=== PATIENT | female | born 1945 | race Caucasian/White ===

== ENCOUNTER 2020-02-23 13:49 | Inpatient (IN) | payer MEDICARE, OTHER ==
[~2020-02-23] VITALS: Ht 167.6 cm; Wt 77.1 kg
[~2020-02-23 13:49] MED LIST: ACET650T11 PO; ASPI81TA31 PO; BENA10TA PO; BISA10SU12 RC; BLOO-125 IN; COLACE PO; EZET10TA15 PO; FERR325T24 PO; HYDR-500 PO; IBAN3DIS IV; LANTUS INSULIN SQ; METF500T PO; NA P133E RC; NOVOLOG INSULIN SQ; ONDA4VIA52 IM; PROSTAT SF PO; SPIR25TA PO
--- NOTE | 2020-02-23 14:00 | NUR ---
PT PRESENTED TO ER VIA PRIVATE AMBULANCE FROM [facility] CONFUSED, AROUSABLE TO VERBAL STIMULI. FOLLOWS COMMANDS NO S/S CARDIOVASCULAR DISTRESS RESPIRATION EVEN AND UNLABORED SR UP FOR SAFETY. BED LOCKED, LOWEST POSITION MONITORED ACCORDINGLY WILL CONTINUE TO MONITOR PT
--- NOTE | 2020-02-23 14:02 | NUR ---
Dr. Wren at bedside for MSE
[2020-02-23] MEDS ORDERED: IV NORMAL SALINE 1000 ML BAG IV ONE ×2 (14:15→15:15)
[2020-02-23 14:47] LABS: BASOPHILS # (AUTO) 0.1 K/uL (0.0-8.0); BASOPHILS % (AUTO) 1.2 % (0.0-2.0); EOSINOPHILS # (AUTO) 0.4 K/uL (0.0-0.7); EOSINOPHILS % (AUTO) 4.9 % (0.0-7.0); HEMATOCRIT 35.8 % (31.2-41.9); LYMPHOCYTES % (AUTO) 25.3 % (20.5-51.5); MEAN CORPUSCULAR HEMOGLOBIN 30.7 uug (24.7-32.8); MEAN CORPUSCULAR HGB CONC 33 g/dL (32.3-35.6); MEAN CORPUSCULAR VOLUME 91.7 fL (75.5-95.3); MONOCYTES # (AUTO) 0.7 K/uL (2.0-10.0); MONOCYTES % (AUTO) 9.4 % (0.0-11.0); NEUTROPHILS # (AUTO) 4.6 K/uL (1.8-8.9); NEUTROPHILS % (AUTO) 59.2 % (38.5-71.5); PLATELET COUNT (AUTO) 230 K/uL (179-408); WHITE BLOOD COUNT (AUTO) 7.8 K/uL (3.8-11.8)
[2020-02-23 14:53] LABS: CARBON DIOXIDE 29 mmol/L (21-32); CHLORIDE 102 mmol/L (98-107); CREATININE 2.3 mg/dL (0.6-1.3); GLUCOSE 90 mg/dL (74-106); POTASSIUM 5.2 mmol/L (3.5-5.1); UREA NITROGEN, BLOOD 28 mg/dL (7-18)
--- NOTE | 2020-02-23 14:56 | NUR ---
PT OUT OF ER FOR CT
[2020-02-23 14:58] LABS: ALANINE AMINOTRANSFERASE 32 U/L (14-59); ALKALINE PHOSPHATASE 65 U/L (50-136); ASPARTATE AMINOTRANSFERASE 46 U/L (15-37); BILIRUBIN,DIRECT 0.1 mg/dL (0.0-0.2); BILIRUBIN,TOTAL 0.2 mg/dL (0.2-1.0); TOTAL PROTEIN, SERUM 7.6 g/dL (6.4-8.2)
[2020-02-23] MEDS ORDERED: ATOR40TA PO (15:04)
[2020-02-23] MEDS ORDERED: OLAN5TAB3 PO (15:04)
[2020-02-23] MEDS ORDERED: DORZ10DR13 RIGHTEYE (15:04)
[2020-02-23] MEDS ORDERED: GABA600T12 PO (15:04)
[2020-02-23] MEDS ORDERED: METO25TA6 PO (15:04)
[2020-02-23] MEDS ORDERED: LATA2.5D7 EACHEYE (15:04)
[2020-02-23] MEDS ORDERED: LEVO175T7 PO (15:04)
[2020-02-23] MEDS ORDERED: [UNRECOGNIZED DRUG - CODE] PO (15:04)
[2020-02-23] MEDS ORDERED: CYCL2DRO2 RIGHTEYE (15:04)
[2020-02-23] MEDS ORDERED: THIA100T13 PO (15:04)
[2020-02-23] MEDS ORDERED: PANT40TA4 PO (15:04)
[2020-02-23] MEDS ORDERED: MULT1TAB73 PO (15:04)
[2020-02-23] MEDS ORDERED: PSYL174P2 PO (15:04)
[2020-02-23] MEDS ORDERED: AMLO5TAB9 PO (15:04)
[2020-02-23] MEDS ORDERED: primrose oil PO (15:04)
[2020-02-23] MEDS ORDERED: FOLI1TAB16 PO (15:04)
[2020-02-23] MEDS ORDERED: BRIM5DRO RIGHTEYE (15:04)
[2020-02-23] MEDS ORDERED: TURM500C7 PO (15:04)
[2020-02-23] MEDS ORDERED: ACET-2154 PO (15:05)
[2020-02-23] MEDS ORDERED: GENT5DRO4 RIGHTEYE (15:05)
[2020-02-23] MEDS ORDERED: TRAZ-182 PO (15:05)
[2020-02-23] MEDS ORDERED: CEFAZOLIN RIGHTEYE (15:05)
[2020-02-23] MEDS ORDERED: GATI2.5D RIGHTEYE (15:05)
[2020-02-23] MEDS ORDERED: BACI3.5O5 RIGHTEYE (15:05)
[2020-02-23] MEDS ORDERED: [UNRECOGNIZED DRUG - CODE] PO (15:05)
[2020-02-23] MEDS ORDERED: GABA-534 PO (15:05)
[2020-02-23] MEDS ORDERED: IBUP-1955 PO (15:05)
[2020-02-23] MEDS ORDERED: HYDR-4354 PO (15:05)
[2020-02-23] MEDS ORDERED: MAGN400O6 PO (15:05)
[2020-02-23] MEDS ORDERED: CLON0.1T14 PO (15:05)
[2020-02-23] MEDS ORDERED: [UNRECOGNIZED DRUG - CODE] RIGHTEYE (15:05)
[2020-02-23 15:09] LABS: THYROID STIMULATING HORMONE 4.418 mIU/mL (0.358-3.740)
[2020-02-23] MEDS ORDERED: CEFTRIAXONE 1 G in IV DEXTROSE 5% 50 ML IV ONE ×2 (15:15→16:30)
[2020-02-23] MEDS ORDERED: AZITHROMYCIN IV 500 MG in IV DEXTROSE 5% 250 ML IV ONE (15:15)
[2020-02-23] MEDS ORDERED: AZITHROMYCIN 500MG/ D5W 250ML IVPB **ER PYXIS ONLY IV ONE (15:38)
[2020-02-23 15:39] LABS: *BILIRUBIN,URIN NEGATIVE (NEGATIVE); *BLOOD, URINE NEGATIVE (NEGATIVE); *COLOR,URINE YELLOW (YELLOW); *KETONES,URINE NEGATIVE (NEGATIVE); *UROBILINOGEN,URINE 0.2 E.U./dl (NORMAL); NITRITE, URINE POSITIVE (NEGATIVE); UGLUCOSE NEGATIVE (NEGATIVE)
[2020-02-23] MEDS ORDERED: CEFTRIAXONE /D5W 50ML IVPB **ER PYXIS IV ONE (15:41)
[2020-02-23 15:43] LABS: ABG BASE EXCESS -3.2 mmol/L; ABG HCO3 23.2 mmol/L; ABG PCO2 47.3 mmHg (35.0-45.0); ABG PH 7.309 (7.350-7.450); ABG PO2 97.2 mmHg (75.0-100.0); ABG SITE RIGHT RADIAL; ABG TOTAL HEMOGLOBIN 11.9 G/dL (12.0-16.0); COHb 5.2 % (0.5-1.5); MetHb 0.1 % (0.0-1.5); O2Hb 92.3 % (94.0-97.0); VENT MODE Nasal Cannula
[2020-02-23 15:52] LABS: *CLARITY,URINE CLOUDY (CLEAR); LEUKOCYTE ESTERASE ,URINE 2+ (NEGATIVE)
[2020-02-23 15:53] LABS: BACTERIA,URINE MANY /HPF (NONE SEEN); SQUAMOUS EPITHELIAL CELL,UR MODERATE /HPF (NONE SEEN); WBC,URINE 80-100 /HPF (0-3)
[2020-02-23] MEDS ORDERED: IV NS 1000 ML 1,000 ML IV ONE (16:30)
--- NOTE | 2020-02-23 17:08 | NUR ---
report given to Mena WILLIS
[2020-02-23] MEDS ORDERED: CLONIDINE HCL 0.1 MG TABLET PO PRN (18:15)
--- NOTE | 2020-02-23 18:26 | NUR ---
Pt. admitted to Tele Room 220 , under care of David Trejo PAPER FINAL INSPECTOR Belongs List completed All belongings with pt no s/s of distress
[2020-02-23] MEDS ORDERED: SODIUM POLYSTYRENE SULFONATE 15 G/60 ML LIQUID UDC PO ONE (18:30)
[2020-02-23] MEDS ORDERED: ONDANSETRON 4 MG/2 ML VIAL IV PRN (18:45)
[2020-02-23] MEDS ORDERED: MAGNESIUM HYDROXIDE 30 ML LIQUID UDC PO PRN (18:45)
[2020-02-23] MEDS ORDERED: MORPHINE SULFATE 2 MG/1 ML DISP.SYRIN IV PRN (18:45)
[2020-02-23] MEDS ORDERED: ZOLPIDEM 5 MG TABLET PO PRN (18:45)
[2020-02-23] MEDS ORDERED: Z GUARD REMEDY PASTE 57 GM TUBE TOP PRN (18:45)
[2020-02-23] MEDS ORDERED: DEXTROSE 50% 50 ML DISP.SYRIN IV PRN (18:45)
[2020-02-23] MEDS ORDERED: ACETAMINOPHEN 325 MG TABLET PO PRN (18:45)
--- NOTE | 2020-02-23 19:30 | NUR ---
RECEIVED SHIFT REPORT FROM AM NURSE. PATIENT TRANSFERRED FROM ER TO TELE UNIT. RECEIVED PATIENT IN BED, INTERMITTENTLY ASLEEP. PATIENT EASILY AROUSABLE WHEN SPOKEN TO. DENIES PAIN AT THIS TIME. NO FACIAL GRIMACING OBSERVED. ON ROOM AIR, TOLERATED WELL. RESPIRATIONS EVEN AND UNLABORED. PATIENT PULLED OUT PERIPHERAL LINE TO RIGHT WRIST. DRY DRESSING INTACT, NO BLEEDING OBSERVED. FALL AND SAFETY PRECAUTIONS OBSERVED. WILL CONTINUE TO ANTICIPATE AND MEET PATIENT'S NEEDS.
[2020-02-23 19:50] LABS: FERRITIN 59 ng/mL (8-252); LACTATE DEHYDROGENASE 306 U/L (81-234)
[2020-02-23 20:12] LABS: CREATINE KINASE, TOTAL 1101 U/L (26-192)
[2020-02-23 21:20] VITALS: BP 127/67
[2020-02-23] MEDS: ATORVASTATIN 40 MG TABLET PO SCH (21:45)
[2020-02-23] MEDS: GABAPENTIN 300 MG CAPSULE PO SCH (21:46)
[2020-02-23] MEDS: TRAZODONE 50 MG TABLET PO SCH (21:46)
[2020-02-23] MEDS: HEPARIN SODIUM,PORCINE 5,000 UNITS/ML VIAL SQ SCH (21:47)
[2020-02-23] MEDS: BLOOD SUGAR DIAGNOSTIC 1 EACH STRIP VI SCH (22:04)
[2020-02-23] MEDS: DORZOLAMIDE/TIMOLOL OPHT DROP 10 ML BOTTLE RIGHTEYE SCH (22:04)
[2020-02-24] MEDS: PIPERACILLIN SODIUM/TAZOBACTAM 3.375 G in IV DEXTROSE 5% 50 ML IV SCH ×4 (00:08→22:30)
[2020-02-24 00:48] VITALS: BP 155/65
[2020-02-24 04:39] VITALS: BP 135/67
[2020-02-24] MEDS: BLOOD SUGAR DIAGNOSTIC 1 EACH STRIP VI SCH ×4 (06:33→21:34)
--- NOTE | 2020-02-24 07:22 | NUR ---
PATIENT IS IN BED, ASLEEP BUT EASILY AROUSABLE. PERIPHERAL LINE INSERTED TO RIGHT FOREARM, TOLERATED PROCEDURE WELL. PERIPHERAL LINE INTACT AND PATENT, INFUSING ZOSYN PER MD ORDER. AFEBRILE THROUGH THE NIGHT. KEPT PATIENT WARM, CLEAN, AND COMFORTABLE. FALL AND SAFETY PRECAUTIONS OBSERVED. ALL NEEDS ATTENDED.
[2020-02-24] MEDS: MULTIVITAMINS,THERAPEUTIC TABLET PO SCH (08:37)
[2020-02-24] MEDS: OLANZAPINE 5 MG TABLET PO SCH ×2 (08:37→21:19)
[2020-02-24] MEDS: FOLIC ACID 1 MG TABLET PO SCH (08:37)
[2020-02-24] MEDS: THIAMINE HCL 100 MG TABLET PO SCH (08:37)
[2020-02-24] MEDS: PANTOPRAZOLE SODIUM 40 MG TABLET.DR PO SCH (08:37)
[2020-02-24] MEDS: HEPARIN SODIUM,PORCINE 5,000 UNITS/ML VIAL SQ SCH ×2 (08:40→21:21)
[2020-02-24] MEDS ORDERED: METHYLSULFONYLMETHANE 1000 MG PO SCH (09:00)
[2020-02-24] MEDS ORDERED: Medication Not On Formulary EA (Multivitamins (Multivitamin) 1 EACH) PO SCH (09:00)
[2020-02-24] MEDS: LEVOTHYROXINE SODIUM 175 MCG TABLET PO SCH (09:47)
[2020-02-24] MEDS: METOPROLOL TARTRATE 25 MG TABLET PO SCH ×2 (10:07→21:16)
[2020-02-24] MEDS: AMLODIPINE 5 MG TABLET PO SCH (10:08)
[2020-02-24] MEDS: POLYMYXIN B RIGHTEYE SCH (10:29)
[2020-02-24] MEDS: BACITRACIN RIGHTEYE SCH (10:29)
[2020-02-24] MEDS: DORZOLAMIDE/TIMOLOL OPHT DROP 10 ML BOTTLE RIGHTEYE SCH ×2 (10:35→21:34)
[2020-02-24] MEDS: INSULIN REGULAR, HUMAN 300 UNIT/3 ML VIAL SQ PRN (11:33)
[2020-02-24 12:03] VITALS: BP 129/65
[2020-02-24 12:03] LABS: BASOPHILS % (AUTO) 0.6 % (0.0-2.0); EOSINOPHILS # (AUTO) 0.3 K/uL (0.0-0.7); EOSINOPHILS % (AUTO) 4.1 % (0.0-7.0); HEMATOCRIT 38.6 % (31.2-41.9); HEMOGLOBIN 12.9 g/dL (10.9-14.3); LYMPHOCYTES # (AUTO) 1.3 K/uL (20.0-40.0); LYMPHOCYTES % (AUTO) 17.8 % (20.5-51.5); MEAN CORPUSCULAR HEMOGLOBIN 30.7 uug (24.7-32.8); MEAN CORPUSCULAR HGB CONC 33 g/dL (32.3-35.6); MEAN CORPUSCULAR VOLUME 91.8 fL (75.5-95.3); MONOCYTES # (AUTO) 0.7 K/uL (2.0-10.0); MONOCYTES % (AUTO) 8.9 % (0.0-11.0); NEUTROPHILS # (AUTO) 5.2 K/uL (1.8-8.9); NEUTROPHILS % (AUTO) 68.6 % (38.5-71.5); PLATELET COUNT (AUTO) 240 K/uL (179-408); RED BLOOD CELL COUNT(AUTO) 4.21 MIL/uL (3.63-4.92); WHITE BLOOD COUNT (AUTO) 7.5 K/uL (3.8-11.8)
[2020-02-24 12:15] LABS: BILIRUBIN,TOTAL 0.4 mg/dL (0.2-1.0); CREATININE 1.2 mg/dL (0.6-1.3); MAGNESIUM 1.7 mg/dL (1.8-2.4); PHOSPHOROUS 3.5 mg/dL (2.5-4.9); POTASSIUM 3.9 mmol/L (3.5-5.1); TOTAL PROTEIN, SERUM 7.3 g/dL (6.4-8.2)
[2020-02-24 15:23] VITALS: BP 112/48
--- NOTE | 2020-02-24 18:40 | NUR ---
Patient remains alert, oriented to self, not in any form of distress on room air during the shift. She denies any pain or discomfort. Due medications administered and tolerated well, compliant with care. Assisted with her needs promptly and met. Peripheral IV site on right forearm in place and patent with no signs of infections. Kept clean, dry and comfortable. Call light and frequently used items placed within patient's reach. Safety measures maintained. Will endorse accordingly to shift engineer nurse.
[2020-02-24 19:30] VITALS: BP 136/59
--- NOTE | 2020-02-24 20:00 | NUR ---
Patient received into care, sleeping in bed, resting comfortably. Patient has no s/s of acute distress or discomfort noted/observed by this nurse. All safety and isolation precautions are in place. Call light and personal items are within reach at all times. Will continue to monitor and asses.
[2020-02-24] MEDS: LATANOPROST OPHT DROP 2.5 ML BOTTLE EACHEYE SCH (21:05)
[2020-02-24] MEDS: TRAZODONE 50 MG TABLET PO SCH (21:06)
[2020-02-24] MEDS: GABAPENTIN 300 MG CAPSULE PO SCH (21:07)
[2020-02-24] MEDS: ATORVASTATIN 40 MG TABLET PO SCH (21:19)
--- NOTE | 2020-02-25 | NUR ---
Patient refused 12mn telemetry VS
[2020-02-25 04:45] VITALS: BP 149/59
[2020-02-25] MEDS: PIPERACILLIN SODIUM/TAZOBACTAM 3.375 G in IV DEXTROSE 5% 50 ML IV SCH ×2 (05:31→13:37)
--- NOTE | 2020-02-25 06:00 | NUR ---
PATIENT SLEPT WELL THROUGHOUT NIGHT WITH NO COMPLAINTS OF PAIN OR DISCOMFORT VERBALIZED. ALL PRESCRIBED MEDICATIONS PROVIDED ORDERED AND TOLERATED WELL, WITH NO ADVERSE SIDE EFFECTS VERBALIZED BY PATIENT OR NOTED/OBSERVED BY THIS NURSE. ALL SAFETY, FALL, AND ISOLATION PRECAUTIONS REMAIN IN PLACE. CALL LIGHT AND PERSONAL ITEMS REMAIN WITHIN REACH AT ALL TIMES.
[2020-02-25] MEDS: BLOOD SUGAR DIAGNOSTIC 1 EACH STRIP VI SCH ×4 (06:52→21:37)
[2020-02-25 08:00] VITALS: BP 159/59
[2020-02-25] MEDS: AMLODIPINE 5 MG TABLET PO SCH (09:48)
[2020-02-25] MEDS: THIAMINE HCL 100 MG TABLET PO SCH (09:48)
[2020-02-25] MEDS: OLANZAPINE 5 MG TABLET PO SCH ×2 (09:48→21:25)
[2020-02-25] MEDS: FOLIC ACID 1 MG TABLET PO SCH (09:48)
[2020-02-25] MEDS: PANTOPRAZOLE SODIUM 40 MG TABLET.DR PO SCH (09:48)
[2020-02-25] MEDS: MULTIVITAMINS,THERAPEUTIC TABLET PO SCH (09:48)
[2020-02-25] MEDS: METOPROLOL TARTRATE 25 MG TABLET PO SCH ×2 (09:49→21:40)
[2020-02-25] MEDS: HEPARIN SODIUM,PORCINE 5,000 UNITS/ML VIAL SQ SCH ×2 (09:50→21:38)
[2020-02-25] MEDS: LEVOTHYROXINE SODIUM 175 MCG TABLET PO SCH (09:51)
[2020-02-25] MEDS: BACITRACIN RIGHTEYE SCH (09:53)
[2020-02-25] MEDS: DORZOLAMIDE/TIMOLOL OPHT DROP 10 ML BOTTLE RIGHTEYE SCH ×2 (09:53→21:26)
[2020-02-25] MEDS: POLYMYXIN B RIGHTEYE SCH (09:53)
[2020-02-25] MEDS: IV NS 1000 ML 1,000 ML IV PRN ×2 (11:11→11:22)
[2020-02-25] MEDS: INSULIN REGULAR, HUMAN 300 UNIT/3 ML VIAL SQ PRN ×3 (11:26→21:39)
[2020-02-25 15:18] VITALS: BP 139/60
[2020-02-25] MEDS: MEROPENEM 1 G in IV NORMAL SALINE 100 ML IV SCH (17:55)
[2020-02-25 20:00] VITALS: BP 115/50
[2020-02-25] MEDS: TRAZODONE 50 MG TABLET PO SCH ×2 (21:00→21:25)
[2020-02-25] MEDS: GABAPENTIN 300 MG CAPSULE PO SCH (21:25)
[2020-02-25] MEDS: LATANOPROST OPHT DROP 2.5 ML BOTTLE EACHEYE SCH (21:26)
[2020-02-25] MEDS: ATORVASTATIN 40 MG TABLET PO SCH (21:26)
[2020-02-26] VITALS: BP 138/56
[2020-02-26] MEDS: HYDROCODONE/APAP 5-325MG TABLET PO PRN (02:34)
[2020-02-26 04:00] VITALS: BP 100/61
[2020-02-26] MEDS: MEROPENEM 1 G in IV NORMAL SALINE 100 ML IV SCH ×2 (05:35→17:45)
[2020-02-26] MEDS: IV NS 1000 ML 1,000 ML IV PRN (05:36)
[2020-02-26 06:30] LABS: CREATININE 1.1 mg/dL (0.6-1.3); MAGNESIUM 1.6 mg/dL (1.8-2.4); POTASSIUM 3.7 mmol/L (3.5-5.1)
[2020-02-26] MEDS: BLOOD SUGAR DIAGNOSTIC 1 EACH STRIP VI SCH ×4 (06:42→21:47)
[2020-02-26 06:47] LABS: BASOPHILS # (AUTO) 0.1 K/uL (0.0-8.0); BASOPHILS % (AUTO) 1.1 % (0.0-2.0); EOSINOPHILS # (AUTO) 0.4 K/uL (0.0-0.7); EOSINOPHILS % (AUTO) 6.3 % (0.0-7.0); HEMATOCRIT 36.6 % (31.2-41.9); HEMOGLOBIN 12.3 g/dL (10.9-14.3); LYMPHOCYTES % (AUTO) 31.8 % (20.5-51.5); MEAN CORPUSCULAR HEMOGLOBIN 30.9 uug (24.7-32.8); MEAN CORPUSCULAR HGB CONC 34 g/dL (32.3-35.6); MEAN CORPUSCULAR VOLUME 91.7 fL (75.5-95.3); MONOCYTES # (AUTO) 0.6 K/uL (2.0-10.0); MONOCYTES % (AUTO) 8.9 % (0.0-11.0); NEUTROPHILS # (AUTO) 3.2 K/uL (1.8-8.9); NEUTROPHILS % (AUTO) 51.9 % (38.5-71.5); PLATELET COUNT (AUTO) 249 K/uL (179-408); RED BLOOD CELL COUNT(AUTO) 3.99 MIL/uL (3.63-4.92); WHITE BLOOD COUNT (AUTO) 6.2 K/uL (3.8-11.8)
--- NOTE | 2020-02-26 06:52 | NUR ---
Patient slept well. No SOB noted. IV on RFA intact and patent w/ IVF infusing. SR on Tele monitor. BS this morning is 87, snacks given. Remains afebrile. All needs attended. Will endorse accordingly
--- NOTE | 2020-02-26 08:00 | NUR ---
Received pt. resting in bed alert oriented x2. Pt. is arousable to voice. Pt. denies pain/ discomfort. Pt. denies SOB/ difficulty breathing. Pt. on room air saturating well. IV in R forearm 22 gauge intact patent running prescribed fluid. safety measures in place. call light within reach. will continue to monitor pt.
[2020-02-26] MEDS: FOLIC ACID 1 MG TABLET PO SCH (08:29)
[2020-02-26] MEDS: THIAMINE HCL 100 MG TABLET PO SCH (08:29)
[2020-02-26] MEDS: MULTIVITAMINS,THERAPEUTIC TABLET PO SCH (08:29)
[2020-02-26] MEDS: MAGNESIUM SULFATE/D5W 100 ML IV SCH ×2 (08:29→08:45)
[2020-02-26] MEDS: PANTOPRAZOLE SODIUM 40 MG TABLET.DR PO SCH (08:30)
[2020-02-26] MEDS: LEVOTHYROXINE SODIUM 175 MCG TABLET PO SCH (08:30)
[2020-02-26] MEDS: OLANZAPINE 5 MG TABLET PO SCH ×2 (08:30→21:14)
[2020-02-26] MEDS: BACITRACIN RIGHTEYE SCH (08:31)
[2020-02-26] MEDS: DORZOLAMIDE/TIMOLOL OPHT DROP 10 ML BOTTLE RIGHTEYE SCH ×2 (08:31→21:13)
[2020-02-26] MEDS: POLYMYXIN B RIGHTEYE SCH (08:31)
[2020-02-26] MEDS: HEPARIN SODIUM,PORCINE 5,000 UNITS/ML VIAL SQ SCH ×2 (08:34→21:15)
[2020-02-26] MEDS: AMLODIPINE 5 MG TABLET PO SCH (08:41)
[2020-02-26] MEDS: METOPROLOL TARTRATE 25 MG TABLET PO SCH ×2 (08:41→21:14)
--- NOTE | 2020-02-26 10:30 | NUR ---
Pt.'s COVID results came back negative. cook room supervisor aware. Will give report and send pt. to 3rd floor.
--- NOTE | 2020-02-26 11:08 | NUR ---
WOUND CARE CONSULT: PT PRESENTS WITH SCARRING LEFT LOWER LEG BELOW KNEE, LEFT FOOT AND HEEL AND TO SACRUM, PRESENT ON ADMISSION. PT ALSO PRESENTS WITH LEFT KNEE ABRASION, PRESENT ON ADMISSION. PT STATES THAT SHE FELL AT HOME PRIOR TO ADMISSION. RECOMMENDATIONS MADE FOR SKIN PROTECTION AND WOUND CARE. DISCUSSED WITH NURSING STAFF. WILL SEE PRN. [place] IN AGREEMENT WITH PLAN OF CARE. Addendum: 02/26/20 at 1109 by RASHEED TOBAR RN Amended: Links added.
--- NOTE | 2020-02-26 12:00 | NUR ---
Pt. transferred to 3rd floor. Report given to Vickie
--- NOTE | 2020-02-26 12:01 | NUR ---
RECEIVED PATIENT BY BED TO ROOM 316 AWAKE ALERT AND SEEMS AWARE ORIENTED TO ROOM AND THIRD FLOOR PROTOCOL ON IVF WITH NS AT 50 ML/H WITH NO S/S OF INFILTERATION AT THIS TIME CALL LIGHTS AND PERSONAL BELONGINGS PLACED WITHIN EASY REACH MADE COMFORTABLE AND WILL CONTINUE TO OBSERVE AND PROVIDE SAFE AND THERAPEUTIC ENVIRONMENT AT ALL TIMES
--- NOTE | 2020-02-26 14:26 | NUR ---
NOTED EPISODE OF STOOL INCONTINENCE LARGE AMOUNT OF WATERY STOOLS AND PER REPORT PATIENT HAS 2 EPISODES THIS AM MD NOTIFIED WITH ORDER TO CHECK FOR C DIFF PATIENT PLACED ON ISOLATION PENDING RESULT OF THE C DIFF IN STOOL.
[2020-02-26 15:40] VITALS: BP 125/44
[2020-02-26] MEDS: NEOMY/BACITRAC/POLYMI OINT 28.35 GM TUBE TOP SCH (17:13)
--- NOTE | 2020-02-26 18:00 | NUR ---
HEATHER SCHOOL CROSSING GUARD SUPERVISOR HERE TO SEE PATIENT AWARE OF DIARRHEA AND THAT STOOL FOR C DIFF WAS SENT WITH NO NEW ORDERS AT THIS TIME.
--- NOTE | 2020-02-26 19:45 | NUR ---
Received patient asleep. Patient shows no signs or symptoms of distress at this time. Vital signs stable. IV is currently leaking. New IV line to be inserted. Bed set to lowest position. Call light within reach. Will continue to monitor patient.
[2020-02-26 20:00] VITALS: BP 128/47
[2020-02-26] MEDS: GABAPENTIN 300 MG CAPSULE PO SCH (21:13)
[2020-02-26] MEDS: LATANOPROST OPHT DROP 2.5 ML BOTTLE EACHEYE SCH (21:13)
[2020-02-26] MEDS: TRAZODONE 50 MG TABLET PO SCH (21:13)
[2020-02-26] MEDS: ATORVASTATIN 40 MG TABLET PO SCH (21:14)
--- NOTE | 2020-02-26 21:45 | NUR ---
22g IV inserted to right hand. Patient shows no signs or symptoms of distress at this time. Denies having any shortness of breath and is afebrile at this time. Will continue to monitor patient.
[2020-02-26] MEDS: INSULIN REGULAR, HUMAN 300 UNIT/3 ML VIAL SQ PRN (21:50)
[2020-02-27] MEDS: IV NS 1000 ML 1,000 ML IV PRN (03:19)
[2020-02-27 04:00] VITALS: BP 141/66
[2020-02-27] MEDS: MEROPENEM 1 G in IV NORMAL SALINE 100 ML IV SCH ×2 (05:11→20:03)
[2020-02-27 06:12] LABS: BASOPHILS # (AUTO) 0.1 K/uL (0.0-8.0); BASOPHILS % (AUTO) 0.9 % (0.0-2.0); EOSINOPHILS # (AUTO) 0.5 K/uL (0.0-0.7); EOSINOPHILS % (AUTO) 7.6 % (0.0-7.0); HEMATOCRIT 39.2 % (31.2-41.9); HEMOGLOBIN 13.1 g/dL (10.9-14.3); LYMPHOCYTES # (AUTO) 2.1 K/uL (20.0-40.0); LYMPHOCYTES % (AUTO) 31.4 % (20.5-51.5); MEAN CORPUSCULAR HEMOGLOBIN 30.5 uug (24.7-32.8); MEAN CORPUSCULAR HGB CONC 33 g/dL (32.3-35.6); MEAN CORPUSCULAR VOLUME 91.2 fL (75.5-95.3); MONOCYTES # (AUTO) 0.6 K/uL (2.0-10.0); MONOCYTES % (AUTO) 9.2 % (0.0-11.0); NEUTROPHILS # (AUTO) 3.4 K/uL (1.8-8.9); NEUTROPHILS % (AUTO) 50.9 % (38.5-71.5); PLATELET COUNT (AUTO) 260 K/uL (179-408); WHITE BLOOD COUNT (AUTO) 6.7 K/uL (3.8-11.8)
[2020-02-27] MEDS: BLOOD SUGAR DIAGNOSTIC 1 EACH STRIP VI SCH ×5 (06:24→21:53)
[2020-02-27 06:28] LABS: MAGNESIUM 1.7 mg/dL (1.8-2.4); PHOSPHOROUS 3.3 mg/dL (2.5-4.9); POTASSIUM 3.7 mmol/L (3.5-5.1)
--- NOTE | 2020-02-27 06:52 | NUR ---
Patient shows no signs or symptoms of distress throughout the shift. Vital signs stable. Bed set to lowest position. Call light within reach. Patient to be endorsed to day shift nurse in stable condition.
[2020-02-27] MEDS: METOPROLOL TARTRATE 25 MG TABLET PO SCH ×2 (09:41→20:49)
[2020-02-27] MEDS: THIAMINE HCL 100 MG TABLET PO SCH (09:42)
[2020-02-27] MEDS: LEVOTHYROXINE SODIUM 175 MCG TABLET PO SCH (09:42)
[2020-02-27] MEDS: AMLODIPINE 5 MG TABLET PO SCH (09:42)
[2020-02-27] MEDS: PANTOPRAZOLE SODIUM 40 MG TABLET.DR PO SCH (09:42)
[2020-02-27] MEDS: MULTIVITAMINS,THERAPEUTIC TABLET PO SCH (09:42)
[2020-02-27] MEDS: FOLIC ACID 1 MG TABLET PO SCH (09:42)
[2020-02-27] MEDS: OLANZAPINE 5 MG TABLET PO SCH ×2 (09:43→20:47)
[2020-02-27] MEDS: DORZOLAMIDE/TIMOLOL OPHT DROP 10 ML BOTTLE RIGHTEYE SCH ×2 (09:43→20:47)
[2020-02-27] MEDS: HEPARIN SODIUM,PORCINE 5,000 UNITS/ML VIAL SQ SCH ×2 (09:46→20:46)
[2020-02-27] MEDS: NEOMY/BACITRAC/POLYMI OINT 28.35 GM TUBE TOP SCH ×2 (09:47→16:55)
[2020-02-27] MEDS: POLYMYXIN B RIGHTEYE SCH (09:47)
[2020-02-27] MEDS: BACITRACIN RIGHTEYE SCH (09:47)
[2020-02-27] MEDS ORDERED: HALOPERIDOL LACTATE 5 MG/1 ML VIAL IM ONE (11:30)
[2020-02-27] MEDS ORDERED: LORAZEPAM 2 MG/1 ML VIAL IM ONE (11:30)
[2020-02-27] MEDS ORDERED: HALOPERIDOL DECANOATE 50 MG/1 ML AMPUL IM ONE (11:30)
[2020-02-27] MEDS ORDERED: diphenhydrAMINE 50 MG/1 ML VIAL IM ONE (11:30)
[2020-02-27] MEDS ORDERED: MAGNESIUM OXIDE 400 MG TABLET PO ONE (12:00)
[2020-02-27] MEDS: MAGNESIUM SULFATE/D5W 100 ML IV SCH ×2 (12:36→15:22)
[2020-02-27] MEDS: DIVALPROEX SPRINKLE 125 MG CAP.SPRINK PO SCH ×2 (13:15→16:55)
[2020-02-27 16:10] VITALS: BP 142/59
--- NOTE | 2020-02-27 18:43 | NUR ---
PATIENT WITH STABLE VITAL SIGNS; PATIENT WITH EMOTIONAL OUTBURST; MD PLACED ORDERS FOR IM SHOT; ORDERS RECEIVED AND CARRIED OUT. PATIENT REFUSED DEPAKOTE THROUGH OUT THE DAY. PATIENT EDUCATED ON BENIFITS OF MEDICATION COMPLIANCE PATIENT STILL REFUSED. PATIENT OTHERWISE ; MEDICALLY STABLE.
[2020-02-27] MEDS: GABAPENTIN 300 MG CAPSULE PO SCH (20:47)
[2020-02-27] MEDS: ATORVASTATIN 40 MG TABLET PO SCH (20:47)
[2020-02-27] MEDS: LATANOPROST OPHT DROP 2.5 ML BOTTLE EACHEYE SCH (20:47)
[2020-02-27] MEDS: TRAZODONE 50 MG TABLET PO SCH (20:48)
[2020-02-27 21:43] VITALS: BP 136/54
[2020-02-27] MEDS: INSULIN REGULAR, HUMAN 300 UNIT/3 ML VIAL SQ PRN (21:56)
[2020-02-28 05:16] VITALS: BP 137/60
[2020-02-28] MEDS: MEROPENEM 1 G in IV NORMAL SALINE 100 ML IV SCH (06:08)
--- NOTE | 2020-02-28 06:48 | NUR ---
Patient slept well. No SOB noted. No complaints of pain throughout the shift. No episodes of agitation. IV on L hand 22g intact and patent w/ IVF infusing. All needs attended. Will endorse accordingly
[2020-02-28] MEDS: BLOOD SUGAR DIAGNOSTIC 1 EACH STRIP VI SCH ×3 (06:51→16:31)
[2020-02-28] MEDS: IV NS 1000 ML 1,000 ML IV PRN (06:59)
--- NOTE | 2020-02-28 08:00 | NUR ---
Received pt in bed asleep but arousable to name and touch. AOx3, cooperative. On RA with no SOB or distress noted at this time. IV on left hand 22G infusing NS@ 50cc. Bed locked in lowest position with siderails 2x up. Call light and phone within reach. No complaints or issues at this time. Will monitor
[2020-02-28] MEDS: HEPARIN SODIUM,PORCINE 5,000 UNITS/ML VIAL SQ SCH (09:30)
[2020-02-28] MEDS: DIVALPROEX SPRINKLE 125 MG CAP.SPRINK PO SCH ×3 (09:31→16:23)
[2020-02-28] MEDS: MULTIVITAMINS,THERAPEUTIC TABLET PO SCH (09:31)
[2020-02-28] MEDS: OLANZAPINE 5 MG TABLET PO SCH (09:31)
[2020-02-28] MEDS: PANTOPRAZOLE SODIUM 40 MG TABLET.DR PO SCH (09:32)
[2020-02-28] MEDS: THIAMINE HCL 100 MG TABLET PO SCH (09:32)
[2020-02-28] MEDS: FOLIC ACID 1 MG TABLET PO SCH (09:32)
[2020-02-28] MEDS: AMLODIPINE 5 MG TABLET PO SCH (09:33)
[2020-02-28] MEDS: METOPROLOL TARTRATE 25 MG TABLET PO SCH (09:33)
[2020-02-28] MEDS: POLYMYXIN B RIGHTEYE SCH (09:34)
[2020-02-28] MEDS: BACITRACIN RIGHTEYE SCH (09:34)
[2020-02-28] MEDS: NEOMY/BACITRAC/POLYMI OINT 28.35 GM TUBE TOP SCH ×2 (09:35→16:30)
[2020-02-28] MEDS: LEVOTHYROXINE SODIUM 175 MCG TABLET PO SCH (09:58)
[2020-02-28] MEDS: DORZOLAMIDE/TIMOLOL OPHT DROP 10 ML BOTTLE RIGHTEYE SCH (10:23)
[2020-02-28 11:58] VITALS: BP 122/47
[2020-02-28] MEDS: INSULIN REGULAR, HUMAN 300 UNIT/3 ML VIAL SQ PRN (12:25)
[2020-02-28] MEDS: HYDROCODONE/APAP 5-325MG TABLET PO PRN (12:39)
--- NOTE | 2020-02-28 15:46 | NUR ---
talked to Kamryn MHOR RN for endorsement. All questions answered
[2020-02-28 16:04] VITALS: BP 143/56
[2020-02-28] MEDS ORDERED: NITROFURANTOIN/NITROFURAN MAC 100 MG CAPSULE PO SCH (21:00)
== END 2020-02-28 16:55 | DRG 682 ==
LOC: ER 13:49 → TELE 17:10 → TELE3 02-26 12:05 → MEDSURG3 02-26 13:51
PROVIDERS: ADMIT Nurse Practitioner Acute Care; ATTEND Nurse Practitioner Acute Care
DX: N17.0 Acute kidney failure with tubular necrosis (principal); G93.41 Metabolic encephalopathy; J15.9 Unspecified bacterial pneumonia; J12.9 Viral pneumonia, unspecified; N39.0 Urinary tract infection, site not specified; D68.69 Other thrombophilia; Z16.12 Extended spectrum beta lactamase (ESBL) resistance; B96.20 Unspecified Escherichia coli [E. coli] as the cause of diseases classified elsewhere; E03.9 Hypothyroidism, unspecified; E83.42 Hypomagnesemia; E78.5 Hyperlipidemia, unspecified; E87.5 Hyperkalemia; F25.9 Schizoaffective disorder, unspecified; H40.9 Unspecified glaucoma; M48.02 Spinal stenosis, cervical region; M06.9 Rheumatoid arthritis, unspecified; Z79.4 Long term (current) use of insulin; Z79.82 Long term (current) use of aspirin; K21.9 Gastro-esophageal reflux disease without esophagitis; Z79.84 Long term (current) use of oral hypoglycemic drugs; R53.1 Weakness; J44.9 Chronic obstructive pulmonary disease, unspecified; E66.9 Obesity, unspecified; Z68.27 Body mass index [BMI] 27.0-27.9, adult; E66.01 Morbid (severe) obesity due to excess calories; E11.65 Type 2 diabetes mellitus with hyperglycemia; I10 Essential (primary) hypertension; R40.2412 Glasgow coma scale score 13-15, at arrival to emergency department
CPT/HCPCS: 36415; 36600; 70030-TC; 70450; 71045; 72125; 83605; 83615; 83735; 84100; 84443; 85025; 85730; 86140; 87040; 87077; 87086; 93005; A4663; G0378; J0456; J0696; J1200; J1630; J1644; J1815; J2060; J2185; J2270; J2543; J3475; J3490; J7030; J7040; J7060; U0003-CS

== ENCOUNTER 2020-02-28 17:22 | Inpatient (IN) | payer MEDICARE, OTHER ==
[~2020-02-28] VITALS: Ht 162.6 cm; Wt 71.7 kg
[2020-02-28 17:00] VITALS: BP 142/67
[~2020-02-28 17:22] MED LIST changes: +ACET-2154 PO; -ACET650T11 PO; +AMLO5TAB9 PO; -ASPI81TA31 PO; +ATOR40TA PO; +BACI3.5O5 RIGHTEYE; -BENA10TA PO; -BISA10SU12 RC; +BRIM5DRO RIGHTEYE; +CEFAZOLIN RIGHTEYE; +CLON0.1T14 PO; -COLACE PO; +CYCL2DRO2 RIGHTEYE; +DORZ10DR13 RIGHTEYE; -EZET10TA15 PO; -FERR325T24 PO; +FOLI1TAB16 PO; +GABA-534 PO; +GABA600T12 PO; +GATI2.5D RIGHTEYE; +GENT5DRO4 RIGHTEYE; +HYDR-4354 PO; -HYDR-500 PO; -IBAN3DIS IV; +IBUP-1955 PO; -LANTUS INSULIN SQ; +LATA2.5D7 EACHEYE; +LEVO175T7 PO; +MAGN400O6 PO; +METO25TA6 PO; +MULT-594 PO; -NA P133E RC; -NOVOLOG INSULIN SQ; +OLAN5TAB3 PO; -ONDA4VIA52 IM; +PANT40TA4 PO; -PROSTAT SF PO; +PSYL174P2 PO; -SPIR25TA PO; +THIA100T13 PO; +TRAZ-182 PO; +TURM500C7 PO; +[UNRECOGNIZED DRUG - CODE] PO; +[UNRECOGNIZED DRUG - CODE] PO; +[UNRECOGNIZED DRUG - CODE] RIGHTEYE; +primrose oil PO
[2020-02-28] MEDS ORDERED: CLONIDINE HCL 0.1 MG TABLET PO PRN (18:30)
[2020-02-28] MEDS ORDERED: LORAZEPAM 1 MG TABLET PO PRN (18:30)
[2020-02-28] MEDS ORDERED: ACETAMINOPHEN 325 MG TABLET PO PRN ×2 (18:30)
[2020-02-28] MEDS ORDERED: MAGNESIUM HYDROXIDE 30 ML LIQUID UDC PO PRN (18:30)
[2020-02-28] MEDS ORDERED: TEMAZEPAM 7.5 MG CAPSULE PO PRN (18:30)
[2020-02-28] MEDS ORDERED: MAG HYDROX/AL HYDROX/SIMETH 30 ML LIQUID UDC PO PRN (18:30)
[2020-02-28] MEDS: ATORVASTATIN 40 MG TABLET PO SCH (20:01)
[2020-02-28] MEDS: NITROFURANTOIN/NITROFURAN MAC 100 MG CAPSULE PO SCH (20:01)
[2020-02-28] MEDS: GABAPENTIN 300 MG CAPSULE PO SCH (20:02)
[2020-02-28 20:23] VITALS: BP 146/62
[2020-02-28] MEDS: BACITRACIN RIGHTEYE SCH (21:14)
[2020-02-28] MEDS: POLYMYXIN B RIGHTEYE SCH (21:14)
[2020-02-28] MEDS: IBUPROFEN 600 MG TABLET PO SCH (21:14)
[2020-02-29] MEDS: LEVOTHYROXINE SODIUM 175 MCG TABLET PO SCH (06:26)
[2020-02-29] MEDS: IBUPROFEN 600 MG TABLET PO SCH ×3 (06:26→22:18)
[2020-02-29 07:30] VITALS: BP 142/74
[2020-02-29 07:35] LABS: BILIRUBIN,TOTAL 0.3 mg/dL (0.2-1.0); POTASSIUM 3.8 mmol/L (3.5-5.1); TOTAL PROTEIN, SERUM 7.3 g/dL (6.4-8.2)
[2020-02-29] MEDS ORDERED: GENTAMICIN SULFATE OPHT DROP 5 ML BOTTLE RIGHTEYE SCH (09:00)
[2020-02-29] MEDS ORDERED: BRIMONIDINE-P 0.1% OPHTH DROP 5 ML DROPS RIGHTEYE SCH (09:00)
[2020-02-29] MEDS: FOLIC ACID 1 MG TABLET PO SCH (09:01)
[2020-02-29] MEDS: MULTIVIT, IRON, MIN NO. 8, FA TABLET PO SCH (09:01)
[2020-02-29] MEDS: AMLODIPINE 5 MG TABLET PO SCH (09:02)
[2020-02-29] MEDS: PANTOPRAZOLE SODIUM 40 MG TABLET.DR PO SCH (09:03)
[2020-02-29] MEDS: METFORMIN HCL 500 MG TABLET PO SCH ×2 (09:03→17:38)
[2020-02-29] MEDS: NITROFURANTOIN/NITROFURAN MAC 100 MG CAPSULE PO SCH ×2 (09:03→20:21)
[2020-02-29] MEDS: METOPROLOL TARTRATE 25 MG TABLET PO SCH ×2 (09:03→17:39)
[2020-02-29] MEDS: THIAMINE HCL 100 MG TABLET PO SCH (09:04)
[2020-02-29] MEDS: DORZOLAMIDE/TIMOLOL OPHT DROP 10 ML BOTTLE RIGHTEYE SCH ×2 (09:04→17:46)
[2020-02-29] MEDS: HYDROCODONE/APAP 10-325 MG TABLET PO PRN (12:22)
[2020-02-29] MEDS: LIDOCAINE 5% PATCH TD SCH (14:31)
[2020-02-29] MEDS: OLANZAPINE ZYDIS 5 MG TAB.RAPDIS PO SCH ×2 (15:12→17:39)
[2020-02-29] MEDS: DIVALPROEX SPRINKLE 125 MG CAP.SPRINK PO SCH ×2 (15:13→17:38)
[2020-02-29 16:00] VITALS: BP 134/57
[2020-02-29] MEDS: GABAPENTIN 300 MG CAPSULE PO SCH ×2 (17:38→20:21)
[2020-02-29] MEDS: LATANOPROST OPHT DROP 2.5 ML BOTTLE EACHEYE SCH (17:40)
[2020-02-29] MEDS: TRAZODONE 50 MG TABLET PO SCH (20:21)
[2020-02-29] MEDS: ATORVASTATIN 40 MG TABLET PO SCH (20:21)
[2020-02-29] MEDS: BACITRACIN RIGHTEYE SCH (20:23)
[2020-02-29] MEDS: POLYMYXIN B RIGHTEYE SCH (20:23)
[2020-02-29 21:28] VITALS: BP 136/98
--- NOTE | 2020-02-29 22:35 | NUR ---
PATIENT RECEIVED PACING THE HALLWAY, PATIENT ALERT/ORIENTED X2. PATIENT IS LABILE, NEEDY, DEMANDING, AND EASILY IRRITABLE. PATIENT IS COMPLAINT WITH MEDICATION. NO AGGRESSIVE OR COMBATIVE BEHAVIOR NOTED. PATIENT REQUIRES CONSTANT REDIRECTION AND LIMITS SET. SAFE ENVIRONMENT PROVIDED, FREQUENT ROUNDING, AND CLUTTER FREE ENVIRONMENT. BED IN LOWEST POSITION, BED LOCKED, AND ALARM ON WHILE IN BED.
[2020-03-01] MEDS: IBUPROFEN 600 MG TABLET PO SCH ×3 (06:17→22:09)
[2020-03-01] MEDS: LEVOTHYROXINE SODIUM 175 MCG TABLET PO SCH (06:17)
[2020-03-01 07:30] VITALS: BP 142/49
[2020-03-01] MEDS: OLANZAPINE ZYDIS 5 MG TAB.RAPDIS PO SCH ×2 (08:52→16:56)
[2020-03-01] MEDS: DIVALPROEX SPRINKLE 125 MG CAP.SPRINK PO SCH ×3 (08:52→16:55)
[2020-03-01] MEDS: FOLIC ACID 1 MG TABLET PO SCH (08:52)
[2020-03-01] MEDS: METFORMIN HCL 500 MG TABLET PO SCH ×2 (08:52→16:55)
[2020-03-01] MEDS: MULTIVIT, IRON, MIN NO. 8, FA TABLET PO SCH (08:52)
[2020-03-01] MEDS: GABAPENTIN 300 MG CAPSULE PO SCH ×3 (08:53→20:47)
[2020-03-01] MEDS: PANTOPRAZOLE SODIUM 40 MG TABLET.DR PO SCH (08:53)
[2020-03-01] MEDS: NITROFURANTOIN/NITROFURAN MAC 100 MG CAPSULE PO SCH ×2 (08:53→20:47)
[2020-03-01] MEDS: METOPROLOL TARTRATE 25 MG TABLET PO SCH ×2 (08:53→16:56)
[2020-03-01] MEDS: AMLODIPINE 5 MG TABLET PO SCH (08:54)
[2020-03-01] MEDS: DORZOLAMIDE/TIMOLOL OPHT DROP 10 ML BOTTLE RIGHTEYE SCH ×2 (08:56→16:56)
[2020-03-01] MEDS: LIDOCAINE 5% PATCH TD SCH (08:57)
[2020-03-01] MEDS: THIAMINE HCL 100 MG TABLET PO SCH (09:21)
--- NOTE | 2020-03-01 09:22 | NUR ---
Gps/Asbestos Coverer-, Asleep, arousable, , has not eaten breakfast, claimed wants to eat breakfast, but difficulty staying awake, in no signs of any distress.Will re offer meds. at a later time.
--- NOTE | 2020-03-01 14:21 | NUR ---
INITIAL DISCHARGE PLAN: Pt currently resides at [facility] located at [address] [place] [id number]; . Per pt, she would like to return to this facility after discharge. SW will work with the pt and the MD regarding appropriate discharge planning. SW will form a safe and proper discharge.
[2020-03-01 16:00] VITALS: BP 152/59
--- NOTE | 2020-03-01 16:10 | NUR ---
Light Industrial Supervisor Individual Therapy: woodworker met with pt for brief counseling to address pt's aggressive and combative behavior. Pt was cooperative and actively engaged during session. Pt is anxious about how long it will take for her to return to her SNF. Pt is states she is also wanting to smoke cigarettes, as she does when she is experiencing stress. SW validated pts feelings and provided supportive counseling with actively listening to pt. SW encouraged pt to attend group.
[2020-03-01] MEDS: LATANOPROST OPHT DROP 2.5 ML BOTTLE EACHEYE SCH (16:57)
[2020-03-01 20:34] VITALS: BP 121/51
[2020-03-01] MEDS: ATORVASTATIN 40 MG TABLET PO SCH (20:47)
[2020-03-01] MEDS: TRAZODONE 50 MG TABLET PO SCH (20:48)
[2020-03-01] MEDS: POLYMYXIN B RIGHTEYE SCH (20:49)
[2020-03-01] MEDS: BACITRACIN RIGHTEYE SCH (20:49)
[2020-03-02] MEDS: IBUPROFEN 600 MG TABLET PO SCH ×3 (06:07→21:18)
--- NOTE | 2020-03-02 06:18 | NUR ---
GPS: PT RECEIVED SITTING UP IN TV ROOM, COMMUNICATING WITH PEERS WITHOUT EXCESSIVE BEHAVIOR OR AGGRESSION. PT COOPERATIVE WILL ROUTINE MEDICATIONS AND EYE DROPS. PT EASILY IRRITATED AND YELL WHEN QUESTION NOT ANSWERED. PT WAS ENCOURAGED TO VENT OUT FEELINGS. PT ON ROUTINE PAIN AID, ENCOURAGED TO DRINK PLENTY OF WATER ROSS. PT SLEPT 7.45MINS. HEAD CHECK ONGOING.
[2020-03-02] MEDS: LEVOTHYROXINE SODIUM 175 MCG TABLET PO SCH (07:15)
[2020-03-02 07:30] VITALS: BP 136/50
[2020-03-02] MEDS: NITROFURANTOIN/NITROFURAN MAC 100 MG CAPSULE PO SCH ×2 (08:36→20:31)
[2020-03-02] MEDS: AMLODIPINE 5 MG TABLET PO SCH (08:36)
[2020-03-02] MEDS: GABAPENTIN 300 MG CAPSULE PO SCH ×3 (08:36→20:31)
[2020-03-02] MEDS: MULTIVIT, IRON, MIN NO. 8, FA TABLET PO SCH (08:36)
[2020-03-02] MEDS: METFORMIN HCL 500 MG TABLET PO SCH ×2 (08:37→17:11)
[2020-03-02] MEDS: DIVALPROEX SPRINKLE 125 MG CAP.SPRINK PO SCH ×3 (08:37→17:11)
[2020-03-02] MEDS: OLANZAPINE ZYDIS 5 MG TAB.RAPDIS PO SCH ×2 (08:37→17:11)
[2020-03-02] MEDS: PANTOPRAZOLE SODIUM 40 MG TABLET.DR PO SCH (08:37)
[2020-03-02] MEDS: FOLIC ACID 1 MG TABLET PO SCH (08:37)
[2020-03-02] MEDS: DORZOLAMIDE/TIMOLOL OPHT DROP 10 ML BOTTLE RIGHTEYE SCH ×2 (08:38→17:13)
[2020-03-02] MEDS: METOPROLOL TARTRATE 25 MG TABLET PO SCH ×2 (08:38→17:11)
[2020-03-02] MEDS: LIDOCAINE 5% PATCH TD SCH (08:39)
[2020-03-02] MEDS: THIAMINE HCL 100 MG TABLET PO SCH (08:40)
--- NOTE | 2020-03-02 13:00 | NUR ---
Gps/Sustainability Coordinator- Stayed in the activity room during her lunch, showered self ind. after set up, noted pt. does not get along with her roommate, offered to be move to another room
[2020-03-02 16:00] VITALS: BP 126/61
[2020-03-02] MEDS: HYDROCODONE/APAP 10-325 MG TABLET PO PRN (16:08)
[2020-03-02] MEDS: LATANOPROST OPHT DROP 2.5 ML BOTTLE EACHEYE SCH (17:12)
[2020-03-02 20:00] VITALS: BP 135/53
[2020-03-02] MEDS: BACITRACIN RIGHTEYE SCH (20:32)
[2020-03-02] MEDS: TRAZODONE 50 MG TABLET PO SCH (20:32)
[2020-03-02] MEDS: POLYMYXIN B RIGHTEYE SCH (20:32)
[2020-03-02] MEDS: ATORVASTATIN 40 MG TABLET PO SCH (20:32)
--- NOTE | 2020-03-02 21:00 | NUR ---
INITIALLY, RECEIVED PATIENT IN THE DAY ROOM WATCHING TV. SHE WAS NOTED A/O X 2. CALM AND PLEASANT UPON APPROACHED AND SHE IS ABLE TO MAKE HER NEEDS KNOWN. PATIENT WAS ABLE TO COMPLY WITH ALL HER [facility] MEDICATIONS AND SHE WAS HELPED TO GET IN BED. HOWEVER, AT APPROX 2044, PATIENT CAME TO THE NURSING STATION AND STARTED YELLING, "WHY AM I HERE? I DON'T NEED TO BE HERE! [facility] [address] THE PL[facility] WHERE PATIENTS GET RAPED, [facility], THEY LET PEOPLE GET RAPED HERE". PATIENT REQUIRED MULTIPLE REDIRECTION. SHE WAS REASSURED FOR HER SAFETY AND SHE WAS HELPED BACK TO HER ROOM. PATIENT NOTED LABILE, EASILY IRRITABLE; IMPAIRED INSIGHT AND JUDGMENT IS NOTED TO THE REASON FOR HER ADMISSION TO [facility]. SAFETY AND FALL PRECAUTIONS ARE IN PLACE. WILL CONTINUE TO MONITOR.
[2020-03-03] MEDS: IBUPROFEN 600 MG TABLET PO SCH ×3 (07:21→22:19)
[2020-03-03] MEDS: LEVOTHYROXINE SODIUM 175 MCG TABLET PO SCH (07:21)
[2020-03-03 07:51] VITALS: BP 136/68
[2020-03-03] MEDS: MULTIVIT, IRON, MIN NO. 8, FA TABLET PO SCH (08:45)
[2020-03-03] MEDS: GABAPENTIN 300 MG CAPSULE PO SCH ×3 (08:45→22:27)
[2020-03-03] MEDS: METFORMIN HCL 500 MG TABLET PO SCH ×2 (08:45→16:50)
[2020-03-03] MEDS: OLANZAPINE ZYDIS 5 MG TAB.RAPDIS PO SCH ×2 (08:46→16:50)
[2020-03-03] MEDS: AMLODIPINE 5 MG TABLET PO SCH (08:46)
[2020-03-03] MEDS: FOLIC ACID 1 MG TABLET PO SCH (08:46)
[2020-03-03] MEDS: PANTOPRAZOLE SODIUM 40 MG TABLET.DR PO SCH (08:46)
[2020-03-03] MEDS: THIAMINE HCL 100 MG TABLET PO SCH (08:50)
[2020-03-03] MEDS: LIDOCAINE 5% PATCH TD SCH (08:50)
[2020-03-03] MEDS: METOPROLOL TARTRATE 25 MG TABLET PO SCH ×2 (08:50→16:51)
[2020-03-03] MEDS: DORZOLAMIDE/TIMOLOL OPHT DROP 10 ML BOTTLE RIGHTEYE SCH ×2 (08:51→16:52)
[2020-03-03] MEDS: DIVALPROEX SPRINKLE 125 MG CAP.SPRINK PO SCH ×3 (09:01→16:50)
[2020-03-03] MEDS: NITROFURANTOIN/NITROFURAN MAC 100 MG CAPSULE PO SCH ×2 (09:02→22:26)
--- NOTE | 2020-03-03 10:00 | NUR ---
Gps/Lcn- Showered self ind. after set up. Lower back pain , chronic per pt. adequate relief w/ pain patch. Attending group therapy. Encouraged continued participation . Re directable, making needs known to staff.
[2020-03-03 15:41] VITALS: BP 97/49
[2020-03-03] MEDS: LATANOPROST OPHT DROP 2.5 ML BOTTLE EACHEYE SCH (17:43)
[2020-03-03 20:00] VITALS: BP 88/46
--- NOTE | 2020-03-03 20:00 | NUR ---
RECEIVED PATIENT IN THE DAY ROOM WATCHING TV. SHE IS NOTED A/O X2. SHE IS CALM AND PLEASANT UPON APPROACHED IN NO DISTRESS. HER MOOD IS LOW, AFFECT IS LABILE. V/S STABLE AT THIS TIME. PO FLUIDS AND SNACKS WERE PROVIDE. PATIENT DENIES SI/HI//AH. PATIENT IS REASSURED FOR HER SAFETY. SAFETY AND FALL PRECAUTION IN PLACE. BED AT LOWEST POSITION WITH WHEELS LOCKED, ROOM FREE FROM CLUTTER, BED ALARM ON AND FREQUENT HEAD CHECKS. WILL CONTINUE TO MONITOR.
[2020-03-03] MEDS: BACITRACIN RIGHTEYE SCH (20:42)
[2020-03-03] MEDS: POLYMYXIN B RIGHTEYE SCH (20:42)
[2020-03-03 21:35] VITALS: BP 105/60
[2020-03-03] MEDS: ATORVASTATIN 40 MG TABLET PO SCH (22:27)
[2020-03-03] MEDS: TRAZODONE 50 MG TABLET PO SCH (22:27)
[2020-03-04] MEDS: IBUPROFEN 600 MG TABLET PO SCH ×4 (06:00→21:09)
[2020-03-04] MEDS: LEVOTHYROXINE SODIUM 175 MCG TABLET PO SCH ×2 (06:41→07:00)
[2020-03-04] MEDS: GABAPENTIN 300 MG CAPSULE PO SCH ×3 (08:19→20:24)
[2020-03-04] MEDS: FOLIC ACID 1 MG TABLET PO SCH (08:19)
[2020-03-04] MEDS: THIAMINE HCL 100 MG TABLET PO SCH (08:19)
[2020-03-04] MEDS: MULTIVIT, IRON, MIN NO. 8, FA TABLET PO SCH (08:19)
[2020-03-04] MEDS: NITROFURANTOIN/NITROFURAN MAC 100 MG CAPSULE PO SCH ×2 (08:19→20:24)
[2020-03-04] MEDS: OLANZAPINE ZYDIS 5 MG TAB.RAPDIS PO SCH ×2 (08:19→16:03)
[2020-03-04] MEDS: METFORMIN HCL 500 MG TABLET PO SCH ×2 (08:19→17:37)
[2020-03-04] MEDS: DIVALPROEX SPRINKLE 125 MG CAP.SPRINK PO SCH ×3 (08:19→16:03)
[2020-03-04] MEDS: AMLODIPINE 5 MG TABLET PO SCH (08:21)
[2020-03-04] MEDS: METOPROLOL TARTRATE 25 MG TABLET PO SCH ×2 (08:21→16:04)
[2020-03-04] MEDS: PANTOPRAZOLE SODIUM 40 MG TABLET.DR PO SCH (08:23)
[2020-03-04] MEDS: LIDOCAINE 5% PATCH TD SCH (08:24)
[2020-03-04] MEDS: DORZOLAMIDE/TIMOLOL OPHT DROP 10 ML BOTTLE RIGHTEYE SCH ×2 (08:25→16:04)
[2020-03-04 13:02] LABS: BASOPHILS # (AUTO) 0.1 K/uL (0.0-8.0); BASOPHILS % (AUTO) 0.7 % (0.0-2.0); EOSINOPHILS # (AUTO) 0.6 K/uL (0.0-0.7); EOSINOPHILS % (AUTO) 6.6 % (0.0-7.0); HEMOGLOBIN 14.1 g/dL (10.9-14.3); LYMPHOCYTES # (AUTO) 1.7 K/uL (20.0-40.0); LYMPHOCYTES % (AUTO) 18.8 % (20.5-51.5); MEAN CORPUSCULAR HEMOGLOBIN 30.7 uug (24.7-32.8); MEAN CORPUSCULAR HGB CONC 34 g/dL (32.3-35.6); MEAN CORPUSCULAR VOLUME 91.3 fL (75.5-95.3); MONOCYTES # (AUTO) 0.9 K/uL (2.0-10.0); MONOCYTES % (AUTO) 10.6 % (0.0-11.0); NEUTROPHILS # (AUTO) 5.6 K/uL (1.8-8.9); NEUTROPHILS % (AUTO) 63.3 % (38.5-71.5)
[2020-03-04 13:14] LABS: PLATELET COUNT (AUTO) 331 K/uL (179-408); WHITE BLOOD COUNT (AUTO) 8.8 K/uL (3.8-11.8)
[2020-03-04 13:16] LABS: BILIRUBIN,TOTAL 0.3 mg/dL (0.2-1.0); CREATININE 1.1 mg/dL (0.6-1.3); POTASSIUM 4.1 mmol/L (3.5-5.1); TOTAL PROTEIN, SERUM 8.4 g/dL (6.4-8.2)
[2020-03-04 15:28] VITALS: BP 120/47
[2020-03-04] MEDS: LATANOPROST OPHT DROP 2.5 ML BOTTLE EACHEYE SCH (17:37)
[2020-03-04] MEDS: BACITRACIN RIGHTEYE SCH (20:23)
[2020-03-04] MEDS: POLYMYXIN B RIGHTEYE SCH (20:23)
[2020-03-04] MEDS: TRAZODONE 50 MG TABLET PO SCH (20:24)
[2020-03-04] MEDS: ATORVASTATIN 40 MG TABLET PO SCH (20:24)
[2020-03-04 20:29] VITALS: BP 125/50
[2020-03-04] MEDS: HYDROCODONE/APAP 10-325 MG TABLET PO PRN (20:56)
--- NOTE | 2020-03-05 04:22 | NUR ---
Received patient in bed. AAO x2. No acute distress or SOB was noted. Compliant with medication. No SI. Calm and pleasant upon approach. Affect is labile. No behavioral issues. Safety measures and fall precaution maintained. All due medication administered as ordered. Bed in lower position and locked, bed alarm on. Room free from clutter. Frequent head checked. Continue to monitor.
[2020-03-05] MEDS: IBUPROFEN 600 MG TABLET PO SCH ×3 (06:00→22:59)
[2020-03-05] MEDS: LEVOTHYROXINE SODIUM 175 MCG TABLET PO SCH (06:01)
[2020-03-05 07:30] VITALS: BP 148/63
[2020-03-05] MEDS: OLANZAPINE ZYDIS 5 MG TAB.RAPDIS PO SCH ×2 (08:16→16:47)
[2020-03-05] MEDS: METFORMIN HCL 500 MG TABLET PO SCH ×2 (08:16→16:46)
[2020-03-05] MEDS: MULTIVIT, IRON, MIN NO. 8, FA TABLET PO SCH (08:17)
[2020-03-05] MEDS: DIVALPROEX SPRINKLE 125 MG CAP.SPRINK PO SCH ×2 (08:17→16:45)
[2020-03-05] MEDS: NITROFURANTOIN/NITROFURAN MAC 100 MG CAPSULE PO SCH ×2 (08:17→20:51)
[2020-03-05] MEDS: FOLIC ACID 1 MG TABLET PO SCH (08:17)
[2020-03-05] MEDS: PANTOPRAZOLE SODIUM 40 MG TABLET.DR PO SCH (08:17)
[2020-03-05] MEDS: GABAPENTIN 300 MG CAPSULE PO SCH ×3 (08:18→20:51)
[2020-03-05] MEDS: LIDOCAINE 5% PATCH TD SCH (08:18)
[2020-03-05] MEDS: THIAMINE HCL 100 MG TABLET PO SCH (08:18)
[2020-03-05] MEDS: AMLODIPINE 5 MG TABLET PO SCH (08:19)
[2020-03-05] MEDS: DORZOLAMIDE/TIMOLOL OPHT DROP 10 ML BOTTLE RIGHTEYE SCH ×2 (08:20→16:46)
[2020-03-05] MEDS: METOPROLOL TARTRATE 25 MG TABLET PO SCH ×2 (08:22→16:47)
--- NOTE | 2020-03-05 12:01 | NUR ---
[facility] Discharge Planning: SW faxed patient's referral packet for placement to the following facilities for review attention to [place]; [facility] ([phone]), [facility] [place] ([phone]), [facility] ([phone]), [facility] ([phone]).
[2020-03-05] MEDS: HYDROCODONE/APAP 10-325 MG TABLET PO PRN (13:24)
[2020-03-05 15:07] VITALS: BP 127/98
--- NOTE | 2020-03-05 15:14 | NUR ---
Taxi Driver Supervisor Individual Therapy: utility worker production met with patient for brief supportive counseling to address patient's aggressive and combative behavior. Patient remain calm and cooperative during sessions. patient is able to adjust to her surrounding and is looking forward to returning back to her shelter facility which she reiterates several times. This bid writer assured patient will return when she is ready for discharge. utility worker production provided active listening and validated patient's feelings and concerns. Patient presents with more appropriate mood and affect.
[2020-03-05] MEDS: LATANOPROST OPHT DROP 2.5 ML BOTTLE EACHEYE SCH (16:50)
[2020-03-05] MEDS: ATORVASTATIN 40 MG TABLET PO SCH (20:51)
[2020-03-05] MEDS: TRAZODONE 50 MG TABLET PO SCH (20:51)
[2020-03-05 20:53] VITALS: BP 131/50
[2020-03-05] MEDS: POLYMYXIN B RIGHTEYE SCH (20:53)
[2020-03-05] MEDS: BACITRACIN RIGHTEYE SCH (20:53)
--- NOTE | 2020-03-06 02:44 | NUR ---
GPS: PT RECEIVED IN BED, A/O X3, RESPOND VERBALLY AND DENIED PAIN. PT ON ROUTINE PAIN MEDICATIONS, COOPERATIVE WITH ALL CARE AT THIS TIME. NO AGGRESSIVE BEHAVIOR NOTED. PT SEEM DEPRESS AND SELF ISOLATOR. WILL CONTINUE TO MONITOR AND Q/15MINS HEAD CHECK ONGOING.
[2020-03-06] MEDS: IBUPROFEN 600 MG TABLET PO SCH ×3 (06:11→21:20)
[2020-03-06] MEDS: LEVOTHYROXINE SODIUM 175 MCG TABLET PO SCH (07:10)
[2020-03-06 07:30] VITALS: BP 140/46
[2020-03-06] MEDS: LIDOCAINE 5% PATCH TD SCH (08:34)
[2020-03-06] MEDS: NITROFURANTOIN/NITROFURAN MAC 100 MG CAPSULE PO SCH (08:35)
[2020-03-06] MEDS: DORZOLAMIDE/TIMOLOL OPHT DROP 10 ML BOTTLE RIGHTEYE SCH ×2 (08:35→17:34)
[2020-03-06] MEDS: FOLIC ACID 1 MG TABLET PO SCH (08:35)
[2020-03-06] MEDS: MULTIVIT, IRON, MIN NO. 8, FA TABLET PO SCH (08:36)
[2020-03-06] MEDS: METFORMIN HCL 500 MG TABLET PO SCH ×2 (08:36→17:36)
[2020-03-06] MEDS: THIAMINE HCL 100 MG TABLET PO SCH (08:36)
[2020-03-06] MEDS: AMLODIPINE 5 MG TABLET PO SCH (08:36)
[2020-03-06] MEDS: OLANZAPINE ZYDIS 5 MG TAB.RAPDIS PO SCH ×2 (08:36→17:35)
[2020-03-06] MEDS: PANTOPRAZOLE SODIUM 40 MG TABLET.DR PO SCH (08:36)
[2020-03-06] MEDS: DIVALPROEX SPRINKLE 125 MG CAP.SPRINK PO SCH ×2 (08:37→17:36)
[2020-03-06] MEDS: GABAPENTIN 300 MG CAPSULE PO SCH ×3 (08:37→20:35)
[2020-03-06] MEDS: METOPROLOL TARTRATE 25 MG TABLET PO SCH ×2 (08:38→17:35)
--- NOTE | 2020-03-06 14:41 | NUR ---
GPS note ; Patient received this am in bed and soaking wet from urine incontinence. Total shower given with am care. Patient is alert and medication compliant. Ambulatory with a walker and physical therapy . No behavior issues noted. Patient denies SI and HI. Continuing to monitor for safety, pain or distress.
[2020-03-06 16:00] VITALS: BP 126/54
[2020-03-06] MEDS: LATANOPROST OPHT DROP 2.5 ML BOTTLE EACHEYE SCH (17:34)
[2020-03-06] MEDS: ATORVASTATIN 40 MG TABLET PO SCH (20:35)
[2020-03-06] MEDS: TRAZODONE 50 MG TABLET PO SCH (20:35)
[2020-03-06] MEDS: BACITRACIN RIGHTEYE SCH (20:36)
[2020-03-06] MEDS: POLYMYXIN B RIGHTEYE SCH (20:36)
[2020-03-06 21:11] VITALS: BP 134/52
[2020-03-07] MEDS: IBUPROFEN 600 MG TABLET PO SCH ×3 (06:00→22:13)
[2020-03-07] MEDS: LEVOTHYROXINE SODIUM 175 MCG TABLET PO SCH (06:00)
--- NOTE | 2020-03-07 06:02 | NUR ---
Patient slept a total of 8.45 hours.
[2020-03-07 07:30] VITALS: BP 114/40
[2020-03-07] MEDS: METFORMIN HCL 500 MG TABLET PO SCH ×2 (08:55→18:00)
[2020-03-07] MEDS: DIVALPROEX SPRINKLE 125 MG CAP.SPRINK PO SCH ×2 (08:55→17:57)
[2020-03-07] MEDS: AMLODIPINE 5 MG TABLET PO SCH (08:56)
[2020-03-07] MEDS: PANTOPRAZOLE SODIUM 40 MG TABLET.DR PO SCH (08:57)
[2020-03-07] MEDS: GABAPENTIN 300 MG CAPSULE PO SCH ×3 (08:57→20:54)
[2020-03-07] MEDS: FOLIC ACID 1 MG TABLET PO SCH (08:57)
[2020-03-07] MEDS: THIAMINE HCL 100 MG TABLET PO SCH (08:57)
[2020-03-07] MEDS: OLANZAPINE ZYDIS 5 MG TAB.RAPDIS PO SCH ×2 (08:57→18:03)
[2020-03-07] MEDS: LIDOCAINE 5% PATCH TD SCH (08:58)
[2020-03-07] MEDS: DORZOLAMIDE/TIMOLOL OPHT DROP 10 ML BOTTLE RIGHTEYE SCH ×2 (08:58→18:00)
[2020-03-07] MEDS: METOPROLOL TARTRATE 25 MG TABLET PO SCH ×2 (09:06→17:59)
[2020-03-07] MEDS: MULTIVIT, IRON, MIN NO. 8, FA TABLET PO SCH (09:10)
--- NOTE | 2020-03-07 14:40 | NUR ---
Gps/Is Architect- Ambulates around with front wheel walker, verbalized adequate relief from her lower back pain,. Attending her group therapy,Verbalizing needs and feelings. Likes to take shower everyday r/t bladder incontinence per patient.
[2020-03-07 16:00] VITALS: BP 132/56
[2020-03-07] MEDS: LATANOPROST OPHT DROP 2.5 ML BOTTLE EACHEYE SCH (18:01)
[2020-03-07 20:00] VITALS: BP 123/52
[2020-03-07] MEDS: TRAZODONE 50 MG TABLET PO SCH (20:53)
[2020-03-07] MEDS: POLYMYXIN B RIGHTEYE SCH (20:54)
[2020-03-07] MEDS: ATORVASTATIN 40 MG TABLET PO SCH (20:54)
[2020-03-07] MEDS: BACITRACIN RIGHTEYE SCH (20:54)
[2020-03-08] MEDS: IBUPROFEN 600 MG TABLET PO SCH ×4 (06:00→21:30)
[2020-03-08] MEDS: LEVOTHYROXINE SODIUM 175 MCG TABLET PO SCH (06:54)
[2020-03-08 07:30] VITALS: BP 148/61
[2020-03-08] MEDS: LIDOCAINE 5% PATCH TD SCH (09:07)
[2020-03-08] MEDS: DORZOLAMIDE/TIMOLOL OPHT DROP 10 ML BOTTLE RIGHTEYE SCH ×2 (09:08→16:34)
[2020-03-08] MEDS: THIAMINE HCL 100 MG TABLET PO SCH (09:09)
[2020-03-08] MEDS: MULTIVIT, IRON, MIN NO. 8, FA TABLET PO SCH (09:09)
[2020-03-08] MEDS: OLANZAPINE ZYDIS 5 MG TAB.RAPDIS PO SCH ×2 (09:09→16:34)
[2020-03-08] MEDS: DIVALPROEX SPRINKLE 125 MG CAP.SPRINK PO SCH ×2 (09:09→16:32)
[2020-03-08] MEDS: FOLIC ACID 1 MG TABLET PO SCH (09:10)
[2020-03-08] MEDS: METFORMIN HCL 500 MG TABLET PO SCH ×2 (09:10→17:56)
[2020-03-08] MEDS: METOPROLOL TARTRATE 25 MG TABLET PO SCH ×2 (09:11→16:34)
[2020-03-08] MEDS: AMLODIPINE 5 MG TABLET PO SCH (09:12)
[2020-03-08] MEDS: GABAPENTIN 300 MG CAPSULE PO SCH ×3 (09:12→21:30)
[2020-03-08] MEDS: PANTOPRAZOLE SODIUM 40 MG TABLET.DR PO SCH (09:12)
--- NOTE | 2020-03-08 10:56 | NUR ---
Gps/Product Accountant- Showered self ind. after set up, Ambulates around with front wheel walker, verbalized having adequate relief from her lower back pain. Attends her group therapy.
--- NOTE | 2020-03-08 14:35 | NUR ---
Roller Repairer Individual Therapy: group social worker met with patient for brief supportive counseling to address patient's aggressive and combative behavior. Patient has been calm and cooperative with her treatment and has been interacting with peers and engaging in group. Patient does not express any concerns at this time other than returning to [facility] where she has been residing for a couple years. Patient does not presents aggressive or combative with this health technical writer and is pleasant to speak with. Patient is alert and oriented times 4 and presents with appropriate mood.
[2020-03-08 15:12] VITALS: BP 132/45
[2020-03-08] MEDS: LATANOPROST OPHT DROP 2.5 ML BOTTLE EACHEYE SCH (17:57)
[2020-03-08 20:10] VITALS: BP 142/57
[2020-03-08] MEDS: TRAZODONE 50 MG TABLET PO SCH (21:00)
[2020-03-08] MEDS: ATORVASTATIN 40 MG TABLET PO SCH (21:30)
[2020-03-08] MEDS: BACITRACIN RIGHTEYE SCH (21:31)
[2020-03-08] MEDS: POLYMYXIN B RIGHTEYE SCH (21:31)
[2020-03-09] MEDS: LEVOTHYROXINE SODIUM 175 MCG TABLET PO SCH (06:22)
[2020-03-09] MEDS: IBUPROFEN 600 MG TABLET PO SCH ×3 (06:22→22:00)
[2020-03-09 07:30] VITALS: BP 137/53
[2020-03-09] MEDS: THIAMINE HCL 100 MG TABLET PO SCH (08:28)
[2020-03-09] MEDS: METFORMIN HCL 500 MG TABLET PO SCH ×2 (08:28→18:05)
[2020-03-09] MEDS: OLANZAPINE ZYDIS 5 MG TAB.RAPDIS PO SCH ×2 (08:28→17:09)
[2020-03-09] MEDS: GABAPENTIN 300 MG CAPSULE PO SCH ×3 (08:28→20:01)
[2020-03-09] MEDS: PANTOPRAZOLE SODIUM 40 MG TABLET.DR PO SCH (08:29)
[2020-03-09] MEDS: MULTIVIT, IRON, MIN NO. 8, FA TABLET PO SCH (08:29)
[2020-03-09] MEDS: AMLODIPINE 5 MG TABLET PO SCH (08:29)
[2020-03-09] MEDS: FOLIC ACID 1 MG TABLET PO SCH (08:29)
[2020-03-09] MEDS: METOPROLOL TARTRATE 25 MG TABLET PO SCH ×4 (08:30→17:00)
[2020-03-09] MEDS: DIVALPROEX SPRINKLE 125 MG CAP.SPRINK PO SCH ×2 (08:31→17:08)
[2020-03-09] MEDS: LIDOCAINE 5% PATCH TD SCH (08:32)
[2020-03-09] MEDS: DORZOLAMIDE/TIMOLOL OPHT DROP 10 ML BOTTLE RIGHTEYE SCH ×2 (08:34→17:10)
--- NOTE | 2020-03-09 13:41 | NUR ---
GPS: PT RECEIVED SLEEPING, AWAKE TO LIGHT TOUCH AND RESPOND VERBALLY. PT AMBULATORY WITH WALKER. NO C/O PAIN OR NEW DISCOMFORT, NO SOB NOTED. PT COOPERATIVE WITH ALL MEDICATIONS. OUT OF BED AND TOOK SHOWER. SKIN IMPROVING ON SCAB AREA. PT EASILY ANGRY WITH LITTLE THINGS, PT BECAME UPSET AT CAR SALESPERSON BECAUSE HER PILLOW WAS REMOVED, REDIRECT AND ENCOURAGED TO VENT BUT TO CONTROL OUTBURST. CONTINUE MONITOR.
[2020-03-09] MEDS: LATANOPROST OPHT DROP 2.5 ML BOTTLE EACHEYE SCH (18:05)
[2020-03-09] MEDS: TRAZODONE 50 MG TABLET PO SCH (20:01)
[2020-03-09] MEDS: ATORVASTATIN 40 MG TABLET PO SCH (20:01)
[2020-03-09] MEDS: POLYMYXIN B RIGHTEYE SCH (20:02)
[2020-03-09] MEDS: BACITRACIN RIGHTEYE SCH (20:02)
[2020-03-09 20:37] VITALS: BP 125/50
[2020-03-09] MEDS: HYDROCODONE/APAP 10-325 MG TABLET PO PRN (20:46)
[2020-03-10] MEDS: IBUPROFEN 600 MG TABLET PO SCH ×3 (06:00→21:10)
--- NOTE | 2020-03-10 06:07 | NUR ---
Received Pt awake in bed, A+Ox3 with poor insight into mental health condition and reason for admission. Pt initially refused her HS Trazodone stating, "nothing is wrong with me psychiatrically, I'm here for physical reasons." Pt was educated regarding risks and benefits of medications, and Pt took med after some encouragement. Refused HS and AM Motrin. Easily irritable but redirectable. Denies SI/HI and AH/VH, verbally contracts for safety. Pt denies any depression, but is noted to be isolative and remain in her room in bed most of the time. C/o 910 lower back pain, Hardwick administered with good effect. VS stable.
[2020-03-10] MEDS: LEVOTHYROXINE SODIUM 175 MCG TABLET PO SCH (06:09)
[2020-03-10 07:30] VITALS: BP 145/57
[2020-03-10] MEDS: METFORMIN HCL 500 MG TABLET PO SCH ×2 (08:31→18:29)
[2020-03-10] MEDS: FOLIC ACID 1 MG TABLET PO SCH (08:31)
[2020-03-10] MEDS: PANTOPRAZOLE SODIUM 40 MG TABLET.DR PO SCH (08:31)
[2020-03-10] MEDS: OLANZAPINE ZYDIS 5 MG TAB.RAPDIS PO SCH ×2 (08:31→17:21)
[2020-03-10] MEDS: THIAMINE HCL 100 MG TABLET PO SCH (08:31)
[2020-03-10] MEDS: MULTIVIT, IRON, MIN NO. 8, FA TABLET PO SCH (08:34)
[2020-03-10] MEDS: METOPROLOL TARTRATE 25 MG TABLET PO SCH ×2 (08:34→17:00)
[2020-03-10] MEDS: GABAPENTIN 300 MG CAPSULE PO SCH ×3 (08:34→20:12)
[2020-03-10] MEDS: AMLODIPINE 5 MG TABLET PO SCH (08:35)
[2020-03-10] MEDS: DIVALPROEX SPRINKLE 125 MG CAP.SPRINK PO SCH (08:35)
[2020-03-10] MEDS: LIDOCAINE 5% PATCH TD SCH (08:36)
[2020-03-10] MEDS: DORZOLAMIDE/TIMOLOL OPHT DROP 10 ML BOTTLE RIGHTEYE SCH ×2 (08:36→17:24)
[2020-03-10] MEDS ORDERED: PNEUMOCOCCAL 23-VAL P-SAC VAC 0.5 ML VIAL IM ONE (09:00)
--- NOTE | 2020-03-10 14:34 | NUR ---
GPS: PT A/OX3, VERBALLY RESPONSIVE AND ABLE TO MAKE ALL NEEDS KNOWN. PT DENIED SI OR INTENT TO HARM SELF OR OTHERS. PT DENIED PAIN BUT C/O GENERAL DISCOMFORT. PT ON ROUTINE PAIN MED FOR MANGT. COMPLIANT WITH ORDERS AND PT CARE. AMBULATORY WITH WALKER BUT UNSTABLE GAIT. NO MAJOR BEHAVIOR OUTBURST AT THIS TIME. FEW EPISODES OF EASILY IRRITATED BUT WAS RE-DIRECT AND REORIENT TO REALITY. PT TOOK SHOWER WITH MINIMAL BENCH TOOL MAKER. PARTICIPATED IN ACTIVITY PROGRAM AND INTERACTING WITH PEERS. WILL CONTINUE TO MONITOR.
[2020-03-10 15:26] VITALS: BP 125/54
[2020-03-10] MEDS: DIVALPROEX 500 MG TABLET.DR PO SCH (17:19)
[2020-03-10] MEDS: LATANOPROST OPHT DROP 2.5 ML BOTTLE EACHEYE SCH (18:29)
[2020-03-10] MEDS: HYDROCODONE/APAP 10-325 MG TABLET PO PRN (19:40)
[2020-03-10] MEDS: TRAZODONE 50 MG TABLET PO SCH (20:12)
[2020-03-10] MEDS: ATORVASTATIN 40 MG TABLET PO SCH (20:12)
[2020-03-10 20:14] VITALS: BP 130/70
[2020-03-10] MEDS: POLYMYXIN B RIGHTEYE SCH (20:14)
[2020-03-10] MEDS: BACITRACIN RIGHTEYE SCH (20:14)
[2020-03-11] MEDS: IBUPROFEN 600 MG TABLET PO SCH ×3 (05:48→21:40)
[2020-03-11] MEDS: LEVOTHYROXINE SODIUM 175 MCG TABLET PO SCH (06:00)
[2020-03-11 07:30] VITALS: BP 152/58
[2020-03-11] MEDS: LIDOCAINE 5% PATCH TD SCH (08:44)
[2020-03-11] MEDS: PANTOPRAZOLE SODIUM 40 MG TABLET.DR PO SCH (08:46)
[2020-03-11] MEDS: MULTIVIT, IRON, MIN NO. 8, FA TABLET PO SCH (08:46)
[2020-03-11] MEDS: METFORMIN HCL 500 MG TABLET PO SCH ×2 (08:46→17:44)
[2020-03-11] MEDS: OLANZAPINE ZYDIS 5 MG TAB.RAPDIS PO SCH ×2 (08:46→17:03)
[2020-03-11] MEDS: FOLIC ACID 1 MG TABLET PO SCH (08:46)
[2020-03-11] MEDS: DIVALPROEX 500 MG TABLET.DR PO SCH ×2 (08:46→17:03)
[2020-03-11] MEDS: THIAMINE HCL 100 MG TABLET PO SCH (08:46)
[2020-03-11] MEDS: AMLODIPINE 5 MG TABLET PO SCH (08:46)
[2020-03-11] MEDS: GABAPENTIN 300 MG CAPSULE PO SCH ×3 (08:47→21:13)
[2020-03-11] MEDS: METOPROLOL TARTRATE 25 MG TABLET PO SCH ×2 (08:48→17:03)
[2020-03-11] MEDS: DORZOLAMIDE/TIMOLOL OPHT DROP 10 ML BOTTLE RIGHTEYE SCH ×2 (08:51→17:00)
[2020-03-11 16:00] VITALS: BP 122/56
[2020-03-11] MEDS: LATANOPROST OPHT DROP 2.5 ML BOTTLE EACHEYE SCH (17:05)
[2020-03-11 20:53] VITALS: BP 136/55
[2020-03-11] MEDS: POLYMYXIN B RIGHTEYE SCH (21:00)
[2020-03-11] MEDS: BACITRACIN RIGHTEYE SCH (21:00)
[2020-03-11] MEDS: ATORVASTATIN 40 MG TABLET PO SCH (21:13)
[2020-03-11] MEDS: TRAZODONE 50 MG TABLET PO SCH (21:13)
--- NOTE | 2020-03-11 22:00 | NUR ---
received to care, asleep, in bed. easy to awaken, but resistive to take her medications, stating she would rather sleep. she did talk her medications, with encouragement, all but her opthalmic ointment. as of 2299, she remains asleep. no distress noted. will continue to monitor closely. Addendum: 03/12/20 at 0016 by ÁLVARO NICKERSON LVN error; she TOOK her medications.
--- NOTE | 2020-03-12 06:00 | NUR ---
slept 8.0 hours, total. continues to sleep. no distress noted.
[2020-03-12] MEDS: LEVOTHYROXINE SODIUM 175 MCG TABLET PO SCH (06:03)
[2020-03-12] MEDS: IBUPROFEN 600 MG TABLET PO SCH ×2 (06:03→13:05)
[2020-03-12 07:30] VITALS: BP 142/53
[2020-03-12] MEDS: LIDOCAINE 5% PATCH TD SCH (08:36)
[2020-03-12] MEDS: GABAPENTIN 300 MG CAPSULE PO SCH (08:39)
[2020-03-12 08:40] VITALS: BP 142/53
[2020-03-12] MEDS: AMLODIPINE 5 MG TABLET PO SCH (08:40)
[2020-03-12] MEDS: OLANZAPINE ZYDIS 5 MG TAB.RAPDIS PO SCH (08:40)
[2020-03-12] MEDS: METOPROLOL TARTRATE 25 MG TABLET PO SCH (08:40)
[2020-03-12] MEDS: MULTIVIT, IRON, MIN NO. 8, FA TABLET PO SCH (08:41)
[2020-03-12] MEDS: DIVALPROEX 500 MG TABLET.DR PO SCH (08:41)
[2020-03-12] MEDS: FOLIC ACID 1 MG TABLET PO SCH (08:41)
[2020-03-12] MEDS: METFORMIN HCL 500 MG TABLET PO SCH (08:41)
[2020-03-12] MEDS: PANTOPRAZOLE SODIUM 40 MG TABLET.DR PO SCH (08:45)
[2020-03-12] MEDS: THIAMINE HCL 100 MG TABLET PO SCH (08:46)
[2020-03-12] MEDS: DORZOLAMIDE/TIMOLOL OPHT DROP 10 ML BOTTLE RIGHTEYE SCH (08:46)
--- NOTE | 2020-03-12 10:18 | NUR ---
Discharge Note: Patient will be discharged back to to long-term facility [facility] [address] [place] [address] ([phone]) via Ambulance transportation at 3PM today. Trouble Tracer spoke with , Compliance Representative ([phone]) at facility and he confirmed that patient can arrive today. Patient is alert and oriented x4. Patient is not able to plan for self-care at this time but is willing to continue to accept care provided for her at the facility. Patient denies suicidal or homicidal ideation. Patient is aware and agreeable with discharge plans. Patient presents with euthymic mood and congruent affect. Patient will continue to follow-up with Psychiatrist Dr. Alvarado and It Applications Developer Dr. Licona at [facility]. Patient does not have any family or supportive contacts to notify at this time.
[2020-03-12] MEDS: HYDROCODONE/APAP 10-325 MG TABLET PO PRN (13:42)
--- NOTE | 2020-03-12 14:22 | NUR ---
Patient will be discharged back to to longterm facility [facility] ,report given to Halima WILLIS .patient vs stable,all personal belonging return to patient .
== END 2020-03-12 15:38 | DRG 885 ==
LOC: GPS 17:22
PROVIDERS: ADMIT Psychiatry & Neurology Psychiatry; ATTEND Nurse Practitioner Acute Care
DX: F31.30 Bipolar disorder, current episode depressed, mild or moderate severity, unspecified (principal); G92 Toxic encephalopathy; N39.0 Urinary tract infection, site not specified; B96.20 Unspecified Escherichia coli [E. coli] as the cause of diseases classified elsewhere; H10.9 Unspecified conjunctivitis; E03.9 Hypothyroidism, unspecified; E11.9 Type 2 diabetes mellitus without complications; E66.9 Obesity, unspecified; E78.5 Hyperlipidemia, unspecified; H40.9 Unspecified glaucoma; I10 Essential (primary) hypertension; J44.9 Chronic obstructive pulmonary disease, unspecified; K21.9 Gastro-esophageal reflux disease without esophagitis; M06.9 Rheumatoid arthritis, unspecified; R32 Unspecified urinary incontinence; Z79.899 Other long term (current) drug therapy; Z87.891 Personal history of nicotine dependence; Z68.27 Body mass index [BMI] 27.0-27.9, adult; Z73.6 Limitation of activities due to disability; F29 Unspecified psychosis not due to a substance or known physiological condition; Z79.84 Long term (current) use of oral hypoglycemic drugs; F25.0 Schizoaffective disorder, bipolar type
CPT/HCPCS: 36415; 80164; 85025; 90732